=== PATIENT | female | born 1990 | race Two or more races ===

== ENCOUNTER 2018-08-13 08:35 | Emergency (ER) | payer MEDICAID ==
[2018-08-13] MEDS: ACETAMINOPHEN 325 MG TAB PO (09:04)
== END 2018-08-13 10:18 | disposition home or self-care (01) ==
LOC: E/R 10:18
DX: J11.1 Influenza due to unidentified influenza virus with other respiratory manifestations (principal)
CPT/HCPCS: 99283; Z7502